=== PATIENT | female | born 1980 | race Caucasian/White ===

== ENCOUNTER → 2021-01-31 | Outpatient (REF) | payer OTHER ==
[2021-01-31 14:10] LABS: ALBUMIN 3.9 GM/DL (3.2-5.2); ALT/SGPT 20 U/L (12-78); BILIRUBIN,TOTAL 0.3 MG/DL (0.2-1.0); BLOOD UREA NITROGEN 10 MG/DL (7-18); CALCIUM LEVEL 9.5 MG/DL (8.5-10.1); CARBON DIOXIDE LEVEL 26 MEQ/L (21-32); CHLORIDE LEVEL 105 MEQ/L (98-107); CREATININE FOR GFR 0.76 MG/DL (0.55-1.30); GLOMERULAR FILTRATION RATE > 60.0 (>60); GLUCOSE, FASTING 87 MG/DL (70-100); MAGNESIUM LEVEL 2.2 MG/DL (1.8-2.4); POTASSIUM SERUM 4.7 MEQ/L (3.5-5.1); SODIUM LEVEL 139 MEQ/L (136-145); TOTAL 25(OH) VITAMIN D 22.1 NG/ML (30.0-100.0); TOTAL PROTEIN 7.7 GM/DL (6.4-8.2)
== END ==
LOC: M SFHCADAM 08:40
PROVIDERS: ATTEND Physician Assistant
DX: F90.8 Attention-deficit hyperactivity disorder, other type (principal); G43.909 Migraine, unspecified, not intractable, without status migrainosus; G25.81 Restless legs syndrome